=== PATIENT | female | born 1935 | race Caucasian/White ===

== ENCOUNTER 2016-07-10 10:47 | Outpatient (CLI) | payer MEDICARE, OTHER | END 2016-07-10 10:48 | disposition home or self-care (01) | DX: Z12.31 Encounter for screening mammogram for malignant neoplasm of breast (principal) ==

== ENCOUNTER 2016-07-10 11:11 | Outpatient (CLI) | payer MEDICARE, OTHER | END 2016-07-10 11:12 | disposition home or self-care (01) | DX: M81.0 Age-related osteoporosis without current pathological fracture (principal) ==

== ENCOUNTER 2016-09-26 11:38 | Outpatient (CLI) | payer MEDICARE, OTHER | END 2016-09-26 11:39 | disposition home or self-care (01) | DX: R91.8 Other nonspecific abnormal finding of lung field (principal) ==

== ENCOUNTER 2017-07-10 08:49 | Outpatient (CLI) | payer MEDICARE, OTHER ==
--- NOTE | 2017-07-11 17:24 | Mammography Report ---
DIGITAL SCREENING MAMMOGRAM: 07/10/2017 CLINICAL INDICATION: An 82-year-old with history of benign right breast biopsy for screening. COMPARISON: 07/2016, 07/2015, 07/2014, 07/2013, 07/2012, 07/2011, 06/2010, 06/2009. TECHNIQUE: Routine CC and MLO projections were obtained of the breasts. FINDINGS: The breasts again demonstrate heterogeneously dense fibroglandular parenchyma bilaterally. Coarse and punctate, typically benign calcifications are present. No suspicious masses, clustered microcalcifications, or regions of architectural distortion are identified. IMPRESSION: BENIGN FINDINGS. RECOMMENDATION: Routine annual screening unless otherwise clinically indicated. BIRADS category 2 benign findings. STANDARD QUALIFYING STATEMENTS 1. This examination was reviewed with the aid of Computed-Aided Detection (CAD). 2. A negative or benign imaging report should not delay biopsy if clinically suspicious findings are present. Consider surgical consultation if warranted. More than 5% of cancers are not identified by imaging. 3. Dense breasts may obscure an underlying neoplasm. TD: 07/11/2017 17:23
== END 2017-07-10 08:50 | disposition home or self-care (01) ==
LOC: DI 08:49
PROVIDERS: ATTEND Internal Medicine
DX: Z12.31 Encounter for screening mammogram for malignant neoplasm of breast (principal)
CPT/HCPCS: 77067

== ENCOUNTER 2017-07-10 08:50 | Outpatient (CLI) | payer MEDICARE, OTHER ==
--- NOTE | 2017-07-10 13:10 | XRAY Report ---
DATE OF SERVICE: 07/10/2017 ESOPHAGRAM: 07/10/2017 CLINICAL INDICATION: Dysphagia. FINDINGS: Esophagram was performed in the upright and prone positions. The hypopharynx appears unremarkable. The esophagus is normal in caliber. Tertiary contractions are present. No ulceration, mass lesion, or stricturing is seen. A small sliding hiatal hernia was intermittently visualized, and there was gastroesophageal reflux up to the upper esophageal sphincter. A 13 mm barium pill passed freely through the esophagus and into the stomach. IMPRESSION: PRESBYESOPHAGUS. SMALL SLIDING HIATAL HERNIA, PRODUCING REFLUX. NO EVIDENCE OF ULCERATION OR MASS LESION. FLUOROSCOPY TIME: 2 MINUTES 25 SECONDS; 22 SPOT IMAGES OBTAINED. TD: 07/10/2017 13:09
== END 2017-07-10 08:51 | disposition home or self-care (01) ==
LOC: DI 08:50
PROVIDERS: ATTEND Internal Medicine
DX: K22.8 Other specified diseases of esophagus (principal); K44.9 Diaphragmatic hernia without obstruction or gangrene; K21.9 Gastro-esophageal reflux disease without esophagitis
CPT/HCPCS: 74220

== ENCOUNTER 2017-11-03 11:14 | Outpatient (CLI) | payer MEDICARE, OTHER ==
--- NOTE | 2017-11-04 00:28 | Ultrasound Report ---
EXAM: ABDOMEN ULTRASOUND EXAM DATE: 11/03/2017 12:05 PM. CLINICAL HISTORY: NAUSEA,ABDOMINAL DISCOMFORT,CHANGE IN STOOL COLOR. COMPARISON: None. TECHNIQUE: Real-time scanning was performed with static images obtained. FINDINGS: Liver: Normal in size and echotexture. 10.2 cm. Main portal vein flow: Hepatopetal. Gallbladder: Normal. No stones, wall thickening, or sonographic Roberson's sign. Biliary System: Common bile duct measures 5 mm. No intrahepatic or extrahepatic ductal dilatation. Pancreas: Obscured by bowel gas. Kidneys: Right: 8.0 cm longitudinally. Normal. No contour-deforming mass, stones, or hydronephrosis. Left: 9.1 cm longitudinally. Normal. No contour-deforming mass, stones, or hydronephrosis. Spleen: 7.3 cm. Normal in size and echotexture. Aorta and Inferior Vena Cava: Unremarkable. Other: None. IMPRESSION: Normal abdomen ultrasound. [facility] Referring Provider Line: [phone] SITE ID: [id number]
== END 2017-11-03 11:15 | disposition home or self-care (01) ==
LOC: DI 11:14
PROVIDERS: ATTEND Internal Medicine
DX: R11.0 Nausea (principal); R10.9 Unspecified abdominal pain; R19.5 Other fecal abnormalities
CPT/HCPCS: 76700

== ENCOUNTER 2018-08-09 14:22 | Outpatient (CLI) | payer MEDICARE, OTHER ==
--- NOTE | 2018-08-12 16:44 | DEXA Report ---
Reason: AGE-RELATED OSTEOPOROSIS W/O CURRENT PATHOLOGICAL Procedure Date: 08/09/2018 Accession Number: [id number] / [id number] Procedure: DEX - Dexa Spine and/or Hip CPT Code: FULL RESULT: EXAM: Dexa Spine and/or Hip DATE: 08/09/2018 2:50 PM CLINICAL HISTORY: AGE-RELATED OSTEOPOROSIS W/O CURRENT PATHOLOGICAL TECHNIQUE: Dual energy x-ray absorptiometry (DXA) was performed on a [employer] System. Regions measured are the AP Spine, femoral neck, and if needed forearm. COMPARISON: None. In accordance with the International Society for Clinical Densitometry (ISCD) guidelines, data from previous exams may be reanalyzed using current recommendations and techniques. This is done to allow a more accurate basis for comparison with the current study. FINDINGS: The data for the lumbar spine is as follows: BMD (g/cm/cm) T-SCORE Z-SCORE REGION L1 0.875 -2.1 0.4 L2 1.005 -1.6 0.9 L3 0.906 -2.5 0.0 L4 0.837 -3.0 -0.5 TOTAL 0.899 -2.3 0.1 NOTE: All evaluable vertebrae are used for classification The data for the hip is as follows: BMD (g/cm/cm) T-SCORE Z-SCORE REGION Neck 0.608 -3.1 -0.4 TOTAL 0.579 -3.4 -0.8 NOTE: The femoral neck or total proximal femur, whichever is lowest, is used for classification. DXA RESULTS SUMMARY: Spine SCAN DATE AGE BMD CHANGE VS CHANGE VS PREVIOUS PREVIOUS % [birth year]09/2018 [age] 0[age]899 -0.003 -0.3 07[birth year]10[birth year]2016 [age] 0[age]902 * Denotes significant change at the 95% confidence level. Denotes dissimilar scan types or analysis methods. DXA RESULTS SUMMARY: Hip SCAN DATE AGE BMD CHANGE VS CHANGE VS PREVIOUS PREVIOUS % [birth year]2018 [age] 0.579 -0.024 -4.0 [birth year]10[birth year]2016 [age] 0.603 * Denotes significant change at the 95% confidence level. Denotes dissimilar scan types or analysis methods. IMPRESSION: THE WHO CLASSIFICATION BASED ON THE INTERNATIONAL REFERENCE STANDARD IS OSTEOPOROSIS. THE FRACTURE RISK IS HIGH. RECOMMENDATION: Patients with diagnosis of osteoporosis or osteopenia should have regular bone mineral density assessment. For those eligible for Medicare, routine testing is allowed once every 2 years. Testing frequency can be increased for patients who have rapidly progressing disease or for those who are receiving medical therapy to restore bone mass. COMMENT: World Health Organization (WHO) definitions for osteoporosis and osteopenia: NORMAL BMD: T-score at -1.0 or higher, fracture risk is low OSTEOPENIA BMD: T-score between -1.0 and -2.5, fracture risk is increased. OSTEOPOROSIS BMD: T-score at -2.5 or lower, fracture risk is high. National Osteoporosis Foundation recommends: 1. Obtain adequate dietary calcium (at least 1200 mg per day) and vitamin D (400-800 international units per day). 2. Participate, as appropriate, in regular weightbearing and muscle-strengthening exercise. 3. Avoid tobacco use and reduce alcohol and caffeine intake. 4. For more detailed information see the website at www.NOF.org.
== END 2018-08-09 14:23 | disposition home or self-care (01) ==
LOC: DI 14:22
PROVIDERS: ATTEND Internal Medicine
DX: M81.0 Age-related osteoporosis without current pathological fracture (principal)
CPT/HCPCS: 77080

== ENCOUNTER 2018-08-19 13:36 | Outpatient (CLI) | payer MEDICARE, OTHER ==
--- NOTE | 2018-08-19 16:51 | Mammography Report ---
Reason: SCREENING MAMMO Procedure Date: 08/19/2018 Accession Number: [id number] / [id number] Procedure: ALYSSA - Screening Mammo w/Genaro CPT Code: FULL RESULT: EXAM: Screening Mammo w/Genaro DATE: 08/19/2018 2:01 PM CLINICAL HISTORY: Routine screening. No reported personal or family history of breast cancer. TECHNIQUE: Bilateral CC and MLO views were obtained. COMPARISON: 07/10/2017 through 07/07/2013 FINDINGS: The breasts demonstrate scattered fibroglandular densities bilaterally. Bilateral breasts: There are no suspicious masses, calcifications or areas of distortion. IMPRESSION: Negative examination RECOMMENDATION: Routine annual screening unless otherwise clinically indicated. BI-RADS CATEGORY 1: Negative STANDARD QUALIFYING STATEMENTS: 1. This examination was not reviewed with the aid of Computer-Aided Detection (CAD). 2. A negative or benign imaging report should not preclude biopsy if clinically suspicious findings are present. 3. Dense breasts may obscure an underlying neoplasm. 4. This examination was reviewed with the aid of 3D breast imaging (tomosynthesis).
== END 2018-08-19 13:37 | disposition home or self-care (01) ==
LOC: DI 13:36
PROVIDERS: ATTEND Internal Medicine
DX: Z12.31 Encounter for screening mammogram for malignant neoplasm of breast (principal)
CPT/HCPCS: 77063; 77067

== ENCOUNTER 2020-08-04 14:16 | Outpatient (CLI) | payer MEDICARE, OTHER ==
--- NOTE | 2020-08-04 16:44 | Ultrasound Report ---
PROCEDURE: Carotid Doppler Complete INDICATIONS: CAROTID ARTERY STENOSIS TECHNIQUE: Color and pulse Doppler interrogation was performed of both carotid systems, with image documentation and velocity measurements. COMPARISON: None. FINDINGS: Right side: Brachial blood pressure: 150/58 mm Hg. Common carotid artery peak systolic velocity: 57 cm/sec. Internal carotid artery peak systolic velocity: 353 cm/sec. Internal carotid artery end diastolic velocity: 112 cm/sec. External carotid artery peak systolic velocity: 80 cm/sec. ICA/CCA peak systolic ratio: 6.2 . Zaragoza scale imaging description: Extensive calcified plaque at the bifurcation. Percent internal carotid artery stenosis: 70% and near occlusion . Vertebral artery: Not well visualized. Left side: Brachial blood pressure: 144/52 mm Hg. Common carotid artery peak systolic velocity: 55 cm/sec. Internal carotid artery peak systolic velocity: 160 cm/sec. Internal carotid artery end diastolic velocity: 41 cm/sec. External carotid artery peak systolic velocity: 60 cm/sec. ICA/CCA peak systolic ratio: 2.9 . Zaragoza scale imaging description: Calcified plaque at the bifurcation. Percent internal carotid artery stenosis: 50-69% . Vertebral artery: Flow direction is antegrade. IMPRESSION: High-grade, 70% to near occlusion right ICA stenosis. 50-69% left ICA stenosis. The estimate of stenosis included in the report of the imaging study was calculated using the NASCET method Reviewed by: Omer Bear MD on 08/04/2020 4:42 PM PST Approved by: Omer Bear MD on 08/04/2020 4:42 PM PST Station ID: [id number]
== END 2020-08-04 14:17 | disposition home or self-care (01) ==
LOC: DI 14:16
PROVIDERS: ATTEND Internal Medicine
DX: I65.22 Occlusion and stenosis of left carotid artery (principal)
CPT/HCPCS: 93880

== ENCOUNTER 2020-10-06 10:47 | Outpatient (CLI) | payer MEDICARE, OTHER ==
[2020-10-06 11:10] LABS: BASOPHILS # (AUTO) 0.1 10^3/uL (0.0-0.1); BASOPHILS % (AUTO) 0.7 %; EOSINOPHILS # (AUTO) 0.1 10^3/uL (0.0-0.7); EOSINOPHILS % (AUTO) 1.3 %; HCT - HEMATOCRIT 39.4 % (37.0-47.0); HGB - HEMOGLOBIN 12.9 g/dL (12.0-16.0); LYMPHOCYTES # (AUTO) 1.7 10^3/uL (1.5-3.5); LYMPHOCYTES % (AUTO) 19.6 %; MEAN CORPUSCULAR HGB CONC 32.7 g/dL (32.0-36.0); MEAN CORPUSCULAR VOLUME 97.8 fL (81.0-99.0); MONOCYTES % (AUTO) 11.5 %; NEUTROPHILS # (AUTO) 5.8 10^3/uL (1.5-6.6); NEUTROPHILS % (AUTO) 66.7 %; PLT - PLATELET COUNT 222 10^3/uL (130-450); RED BLOOD COUNT 4.03 10^6/uL (4.20-5.40); WHITE BLOOD COUNT 8.8 x10^3/uL (4.8-10.8)
== END 2020-10-06 10:48 | disposition home or self-care (01) ==
LOC: LAB 10:47
DX: H54.61 Unqualified visual loss, right eye, normal vision left eye (principal)
CPT/HCPCS: 36415; 85025; 85651; 86140

== ENCOUNTER 2020-10-22 07:49 | Outpatient (CLI) | payer MEDICARE, OTHER | END 2020-10-22 07:50 | disposition home or self-care (01) | LOC: DI 07:49 | PROVIDERS: ATTEND Internal Medicine | DX: R01.1 Cardiac murmur, unspecified (principal); I07.1 Rheumatic tricuspid insufficiency | CPT/HCPCS: 93306 ==

== ENCOUNTER 2020-12-01 10:21 | Outpatient (CLI) | payer MEDICARE, OTHER ==
--- NOTE | 2020-12-01 11:44 | XRAY Report ---
PROCEDURE: Chest 2 View X-Ray INDICATIONS: SHORT OF BREATH TECHNIQUE: 2 view(s) of the chest. COMPARISON: None. FINDINGS: Surgical changes and devices: None. Lungs and pleura: No pleural effusions or pneumothorax. Lungs are clear. Lungs are hyperinflated c onsistent with COPD. Mediastinum: Mediastinal contours are normal. Heart size is normal. Bones and chest wall: No suspicious bony abnormalities. Soft tissues appear unremarkable. IMPRESSION: No acute pulmonary process. Reviewed by: Ofe Chiu MD on 12/01/2020 11:43 AM PDT Approved by: Ofe Chiu MD on 12/01/2020 11:43 AM PDT Station ID: [id number]
== END 2020-12-01 10:22 | disposition home or self-care (01) ==
LOC: DI 10:21
PROVIDERS: ATTEND Internal Medicine Cardiovascular Disease
DX: R06.02 Shortness of breath (principal)

== ENCOUNTER 2021-02-03 21:21 | Outpatient (CLI) | payer MEDICARE, OTHER ==
--- NOTE | 2021-02-04 11:12 | Ultrasound Report ---
PROCEDURE: Abdomen Limited INDICATIONS: ABD PAIN, NAUSEA, VOMITING TECHNIQUE: Real-time scanning was performed of the abdominal and retroperitoneal organs, with image documentatio n. COMPARISON: None. FINDINGS: Liver: Liver is normal in size and coarsened in echotexture. Gallbladder: L bladder demonstrates no stones. Wall thickness is within normal limits measuring 1.6 m m. Biliary ducts: Intrahepatic bile ducts are non-dilated. Extrahepatic bile duct caliber measures 3.1 mm. Normal is 6-7 mm or less in diameter, or 10 mm or less post-cholecystectomy. Pancreas: Visualized portions of the pancreas are sonographically normal. Spleen: Spleen is normal in size and homogeneous in echotexture. Kidneys: Right kidney measures 8.0 cm long. No hydronephrosis or nephrolithiasis. No solid masses. IMPRESSION: 1. Unremarkable exam. 2. Gallbladder is unremarkable. The above findings are concordant with preliminary report. Reviewed by: Ofe Chiu MD on 02/04/2021 11:11 AM PDT Approved by: Ofe Chiu MD on 02/04/2021 11:11 AM PDT Station ID: [id number]
== END 2021-02-03 21:22 | disposition home or self-care (01) ==
LOC: DI 21:21
PROVIDERS: ATTEND Internal Medicine
DX: R10.9 Unspecified abdominal pain (principal); R11.2 Nausea with vomiting, unspecified

== ENCOUNTER 2021-08-22 12:47 | Outpatient (CLI) | payer MEDICARE, OTHER ==
--- NOTE | 2021-08-23 10:24 | Mammography Report ---
BILATERAL DIGITAL SCREENING MAMMOGRAM 3D/2D: 08/22/2021 CLINICAL: Routine screening. Comparison is made to exams dated: 08/19/2018 mammogram, 07/10/2017 mammogram, 07/10/2016 mammogram, 2015 mammogram, and 07/11/2014 mammogram - [facility]. The tissue of both breasts is heterogeneously dense. This may lower the sensitivity of mammography. No significant masses, calcifications, or other findings are seen in either breast. There has been no significant interval change. IMPRESSION: NEGATIVE There is no mammographic evidence of malignancy. A 1 year screening mammogram is recommended. This exam was interpreted at Station ID: [id number]. NOTE: For mammograms, a report in lay terms will be sent to the patient. Approximately 15% of breast malignancies will not be visualized mammographically. In the management of a palpable breast mass, a negative mammogram must not discourage biopsy of a clinically suspicious lesion. Electronically Signed By: Victor Hugo Morel M.D. [facility] [place]:08/22/2021 16:54:33 ACR BI-RADS Category 1: Negative 3341F PARENCHYMAL PATTERN: (D) - The breast(s) demonstrate(s) heterogeneously dense fibroglandular aissatou hernandez. BI-RADS CATEGORY: (1) - 1 RECOMMENDATION: (ANNUAL) - Recommend routine annual screening mammography. [id number] 1 year screening LATERALITY: (B)
== END 2021-08-22 12:48 | disposition home or self-care (01) ==
LOC: DI.N 12:47
PROVIDERS: ATTEND Internal Medicine
DX: Z12.31 Encounter for screening mammogram for malignant neoplasm of breast (principal)

== ENCOUNTER 2022-04-10 08:00 | Outpatient (CLI) | payer MEDICARE, OTHER ==
[2022-04-10 18:23] LABS: BILIRUBIN,URINE NEGATIVE (NEGATIVE); GLUCOSE, URINE (UA) NEGATIVE (NEGATIVE); KETONES,URINE (UA) TRACE mg/dL (NEGATIVE); LEUKOCYTE ESTERASE, URINE SMALL (NEGATIVE); NITRITE,URINE NEGATIVE (NEGATIVE); OCCULT BLOOD,URINE NEGATIVE (NEGATIVE); PH,URINE 5.5 PH (5.0-7.5); PROTEIN,URINE NEGATIVE (NEGATIVE); UROBILINOGEN,URINE 0.2 (NORMAL) E.U./dL (NORMAL)
[2022-04-10 18:24] LABS: CLARITY,URINE HAZY (CLEAR)
[2022-04-10 18:46] LABS: BACTERIA,URINE Moderate /HPF (None Seen); EPITHELIAL CELLS,UR FEW Transitional /HPF (<= Few); RBC,URINE 0-5 /HPF (0-5); SQUAMOUS EPITHELIAL CELL,UR FEW Squamous (<= Few); WBC,URINE >25 /HPF (0-5)
== END 2022-04-10 23:59 | disposition home or self-care (01) ==
LOC: LAB.R 08:00
PROVIDERS: ATTEND Internal Medicine
DX: R39.9 Unspecified symptoms and signs involving the genitourinary system (principal)
CPT/HCPCS: 81001; 87086

== ENCOUNTER 2022-04-21 08:00 | Outpatient (CLI) | payer MEDICARE, OTHER ==
[2022-04-21 16:15] LABS: BILIRUBIN,URINE NEGATIVE (NEGATIVE); GLUCOSE, URINE (UA) NEGATIVE (NEGATIVE); KETONES,URINE (UA) NEGATIVE (NEGATIVE); LEUKOCYTE ESTERASE, URINE TRACE (NEGATIVE); NITRITE,URINE NEGATIVE (NEGATIVE); OCCULT BLOOD,URINE NEGATIVE (NEGATIVE); PROTEIN,URINE NEGATIVE (NEGATIVE); UROBILINOGEN,URINE 0.2 (NORMAL) E.U./dL (NORMAL)
[2022-04-21 16:17] LABS: CLARITY,URINE CLEAR (CLEAR)
[2022-04-21 16:28] LABS: BACTERIA,URINE Rare /HPF (None Seen); RBC,URINE None Seen /HPF (0-5); SQUAMOUS EPITHELIAL CELL,UR MOD Squamous (<= Few)
== END 2022-04-21 23:59 | disposition home or self-care (01) ==
LOC: LAB.R 08:00
PROVIDERS: ATTEND Internal Medicine
DX: N39.0 Urinary tract infection, site not specified (principal)
CPT/HCPCS: 81001; 81003; 87086

== ENCOUNTER 2022-05-03 08:00 | Outpatient (CLI) | payer MEDICARE, OTHER ==
[2022-05-03 16:20] LABS: BILIRUBIN,URINE NEGATIVE (NEGATIVE); GLUCOSE, URINE (UA) NEGATIVE (NEGATIVE); KETONES,URINE (UA) NEGATIVE (NEGATIVE); LEUKOCYTE ESTERASE, URINE NEGATIVE (NEGATIVE); NITRITE,URINE NEGATIVE (NEGATIVE); OCCULT BLOOD,URINE NEGATIVE (NEGATIVE); PH,URINE 6.5 PH (5.0-7.5); PROTEIN,URINE NEGATIVE (NEGATIVE); UROBILINOGEN,URINE 0.2 (NORMAL) E.U./dL (NORMAL)
[2022-05-03 16:25] LABS: CLARITY,URINE CLEAR (CLEAR)
[2022-05-03 16:56] LABS: BACTERIA,URINE Few /HPF (None Seen); RBC,URINE 0-5 /HPF (0-5); SQUAMOUS EPITHELIAL CELL,UR FEW Squamous (<= Few); WBC,URINE 0-3 /HPF (0-5)
== END 2022-05-03 23:59 | disposition home or self-care (01) ==
LOC: LAB.R 08:00
PROVIDERS: ATTEND Internal Medicine
DX: R39.9 Unspecified symptoms and signs involving the genitourinary system (principal)
CPT/HCPCS: 81001; 87086

== ENCOUNTER 2022-08-14 11:07 | Outpatient (CLI) | payer MEDICARE, OTHER ==
--- NOTE | 2022-08-15 10:36 | Mammography Report ---
BILATERAL DIGITAL SCREENING MAMMOGRAM 3D/2D: 08/14/2022 CLINICAL: Routine screening. Comparison is made to exams dated: 08/22/2021 mammogram, 08/19/2018 mammogram, 07/10/2017 mammogram, 07/10 mammogram, and 07/13/2015 mammogram - [facility]. Both breasts are heterogeneously dense, which may obscure small masses (category c / 51-75% glandular tissue). No significant masses, calcifications, or other findings are seen in either breast. There has been no significant interval change. IMPRESSION: NEGATIVE There is no mammographic evidence of malignancy. A 1 year screening mammogram is recommended. This exam was interpreted at Station ID: [id number]. NOTE: For mammograms, a report in lay terms will be sent to the patient. Approximately 15% of breast malignancies will not be visualized mammographically. In the management of a palpable breast mass, a negative mammogram must not discourage biopsy of a clinically suspicious lesion. Electronically Signed By: Victor Hugo Morel M.D. [facility] [place]08/14/2022 16:59:55 letter sent: No_Letter ACR BI-RADS Category 1: Negative 3341F PARENCHYMAL PATTERN: (D) - The breast(s) demonstrate(s) heterogeneously dense fibroglandular aissatou hernandez. BI-RADS CATEGORY: (1) - 1 Mammogram [id number] 1 year screening LATERALITY: (B)
== END 2022-08-14 11:08 | disposition home or self-care (01) ==
LOC: DI 11:07
PROVIDERS: ATTEND Internal Medicine
DX: Z12.31 Encounter for screening mammogram for malignant neoplasm of breast (principal)

== ENCOUNTER 2022-08-30 09:41 | Outpatient (CLI) | payer MEDICARE, OTHER ==
--- NOTE | 2022-08-30 16:34 | DEXA Report ---
PROCEDURE: Dexa Spine and/or Hip INDICATIONS: OSTEOPOROSIS TECHNIQUE: Dual energy x-ray absorptiometry (DXA) was performed on a [employer] System. Regions measur ed are the AP Spine, femoral neck, and if needed forearm. COMPARISON: DEXA 08/09/2018 FINDINGS: Lumbar Spine: Bone Mineral Density 0.974 g/cm/cm,T score -1.7, compared to -2.3 Left Femoral Neck: Bone Mineral Density 0.531 g/cm/cm, T score -3.6, compared to -3.1 Left Hip: Bone Mineral Density 0.588 g/cm/cm,T score -3.3, compared to -3.4 (T score greater or equal to -1.0: NORMAL) (T score from -1.1 to -2.4: OSTEOPENIA) (T score less than or equal to -2.5 to: OSTEOPOROSIS) Impression: Progressive osteoporosis within the left femoral neck and relatively stable in the left hip. Osteopen ia is improved in the lumbar spine compared to prior exam. Patients with diagnosis of osteoporosis or osteopenia should have regular bone mineral density assess ment. For those eligible for Medicare, routine testing is allowed once every 2 years. Testing frequ ency can be increased for patients who have rapidly progressing disease or for those who are receivin g medical therapy to restore bone mass. Reviewed by: Ofe Chiu MD on 08/30/2022 4:33 PM PDT Approved by: Ofe Chiu MD on 08/30/2022 4:33 PM PDT Station ID: [id number]
== END 2022-08-30 09:42 | disposition home or self-care (01) ==
LOC: DI 09:41
PROVIDERS: ATTEND Internal Medicine
DX: M81.0 Age-related osteoporosis without current pathological fracture (principal)